=== PATIENT | female | born 2000 | race Caucasian/White ===

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

== ENCOUNTER 2022-09-27 15:07 | Emergency (ER) | payer OTHER ==
[2022-09-27 15:17] VITALS: TEMP 98.6
[2022-09-27 16:50] LABS: Appearance,Urine Clear (Clear); Bilirubin,Urine Negative (Negative); Blood,Urine Negative (Negative); Color,Urine Yellow; Glucose,Urine (UA) Negative (Negative); Ketones,Urine Negative (Negative); Leukocyte Esterase,Urine Negative (Negative); Nitrite,Urine Negative (Negative); Protein,Urine Negative (Negative); Specific Gravity,Urine 1.013 (1.001-1.035); Urobilinogen,Urine <2.0 mg/dL (<2.0)
--- NOTE | 2022-09-27 16:53 | ED ---
Abdominal Pain HPI - General Chief Complaint: Abdominal Pain Stated Complaint: Abd pain/25 weeks preg Time Seen by Provider: 09/27/22 15:43 Source: patient Mode of arrival: ambulatory Limitations: no limitations - History of Present Illness Complaint: abdominal pain Onset/Timin -: days(s) Location: LLQ, RLQ, suprapubic Radiation: none Severity: moderate Quality: cramping Consistency: intermittent Improves With: nothing Worsens With: nothing Associated Symptoms: nausea - Related Data LMP (females 10-50): Home Medications Medication Instructions Recorded Confirmed No Known Home Medications 09/27/22 09/27/22 Allergies Allergy/AdvReac Type Severity Reaction Status Date / Time Penicillins Allergy Rash/Hives Verified 09/27/22 17:41 Review of Systems ROS Statement: Those systems with pertinent positive or pertinent negative responses have been documented in the HPI. ROS Other: All systems not noted in ROS Statement are negative. Constitutional: Denies: fever, chills Respiratory: Denies: cough, dyspnea Cardiovascular: Denies: chest pain, palpitations, edema Gastrointestinal: Reports: abdominal pain. Denies: nausea, vomiting, diarrhea, constipation Genitourinary: Denies: urgency, dysuria, frequency, discharge Musculoskeletal: Denies: back pain Skin: Denies: rash Neurological: Denies: headache, weakness Past Medical History Past Medical History: Asthma History of Any Multi-Drug Resistant Organisms: None Reported Past Surgical History: No Surgical Hx Reported Past Psychological History: ADD/ADHD, Anxiety, Bipolar, Depression Smoking Status: Current every day smoker Past Alcohol Use History: Rare Past Drug Use History: None Reported General Exam Limitations: no limitations General appearance: alert, in no apparent distress Head exam: Present: atraumatic, normocephalic Eye exam: Present: normal appearance. Absent: scleral icterus, conjunctival injection ENT exam: Present: normal exam Neck exam: Present: normal inspection Respiratory exam: Present: normal lung sounds bilaterally. Absent: respiratory distress, wheezes, rales, rhonchi, stridor Cardiovascular Exam: Present: regular rate, normal rhythm, normal heart sounds. Absent: systolic murmur, diastolic murmur, rubs, gallop GI/Abdominal exam: Present: soft, other (Gravid uterus palpable above the umbilicus, palpable movement). Absent: distended, tenderness, guarding, rebound, mass Extremities exam: Present: normal inspection, normal capillary refill. Absent: pedal edema, calf tenderness Back exam: Present: normal inspection. Absent: CVA tenderness (R), CVA tend erness (L) Neurological exam: Present: alert Skin exam: Present: warm, dry, intact, normal color. Absent: rash Course Vital Signs 09/27/22 09/27/22 09/27/22 15:15 17:17 18:28 Temperature 98.6 F 98.6 F Pulse Rate 92 86 76 Respiratory 18 18 20 Rate Blood Pressure 117/79 120/78 120/65 O2 Sat by Pulse 98 98 96 Oximetry Medical Decision Making - Medical Decision Making Was pt. sent in by a medical professional or institution (, PA, PATIENT RELATIONS COORDINATOR, urgent care, hospital, or senior care...) When possible be specific @ -[No] Did you speak to anyone other than the patient for history (EMS, parent, family, police, friend...)? What history was obtained from this source @ -[No] Did you review nursing and triage notes (agree or disagree)? Why? @ -[I reviewed and agree with nursing and triage notes] Were old charts reviewed (outside hosp., previous admission, EMS record, old EKG, old radiological studies, urgent care reports/EKG's, senior care records)? Report findings @ -[No old charts were reviewed] Differential Diagnosis (chest pain, altered mental status, abdominal pain women, abdominal pain men, vaginal bleeding, weakness, fever, dyspnea, syncope, headache, dizziness, GI bleed, back pain, seizure, CVA, palpatations, mental health, musculoskeletal)? @ -[Differential Abdominal Pain Women: Appendicitis, Cholecystitis, diverticulosis, ischemic bowel, pancreatitis, hepatitis, UTI, gastroenteritis, AAA, incarcerated hernia, bowel obstruction, constipation, inflammatory bowel, hepatitis, peptic ulcer disease, splenic infarction, perforated viscus, vulvitis, ovarian torsion, PID, kidney stone, placenta abruption, this is not meant to be an all-inclusive list EKG interpreted by me (3pts min.). @ -[As above] X-rays interpreted by me (1pt min.). @ -[None done] CT interpreted by me (1pt min.). @ -[None done] U/S interpreted by me (1pt. min.). @ -[None done] What testing was considered but not performed or refused? (CT, X-rays, U/S, labs)? Why? @ -[None] What meds were considered but not given or refused? Why? @ -[None] Did you discuss the management of the patient with other professionals (professionals i.e. , PA, PATIENT RELATIONS COORDINATOR, lab, RT, psych nurse, social staff worker, tailoring teacher, teacher, commanding officer garage, porter sample case)? Give summary @ -[No] Was smoking cessation discussed for >3mins.? @ -[No] Was critical care preformed (if so, how long)? @ -[No] Were there social determinants of health that impacted care today? How? (Homelessness, low income, unemployed, alcoholism, drug addiction, transportation, low edu. Level, literacy, decrease access to med. care, prison, rehab)? @ -[No] Was there de-escalation of care discussed even if they declined (Discuss DNR or withdrawal of care, Hospice)? DNR status @ -[No] What co-morbidities impacted this encounter? (DM, HTN, Smoking, COPD, CAD, Cancer, CVA, ARF, Chemo, Hep., AIDS, mental health diagnosis, sleep apnea, morbid obesity)? @ -[None] Was patient admitted / discharged? Hospital course, mention meds given and route, prescriptions, significant lab abnormalities, going to OR and other pertinent info. @ -[Patient is discharged to follow-up with peripheral equipment operator, discussed appropriate follow-up as well as return parameters Undiagnosed new problem with uncertain prognosis? @ -[No] Drug Therapy requiring intensive monitoring for toxicity (Heparin, Nitro, Insulin, Cardizem)? @ -[No] Were any procedures done? @ -[No] Diagnosis/symptom? @ -[Acute abdominal pain and Acute, or Chronic, or Acute on Chronic? @ -[default] Uncomplicated (without systemic symptoms) or Complicated (systemic symptoms)? @ -Uncomplicated Side effects of treatment? @ -[No] Exacerbation, Progression, or Severe Exacerbation? @ -[No] Poses a threat to life or bodily function? How? (Chest pain, [place], [place], pneumonia, PE, COPD, DKA, ARF, appy, cholecystitis, CVA, Diverticulitis, Homicidal, Suicidal, threat to staff... and all critical care pts) @ -[No] - Lab Data Result diagrams: 09/27/22 17:13 09/27/22 17:13 Lab Results 09/27/22 09/27/22 09/27/22 Range/Units 16:10 17:13 17:13 WBC 10.7 (4.0-11.0) k/uL RBC 3.52 L (3.80-5.40) m/uL Hgb 11.8 (11.4-16.0) gm/dL Hct 33.9 L (34.0-46.0) % MCV 96.3 (80.0-100.0) fL MCH 33.5 (25.0-35.0) pg MCHC 34.8 (31.0-37.0) g/dL RDW 12.2 (11.5-15.5) % Plt Count 208 (150-450) k/uL MPV 9.3 Neutrophils % 75 % Lymphocytes % 17 % Monocytes % 6 % Eosinophils % 2 % Basophils % 0 % Neutrophils # 8.0 H (1.3-7.7) k/uL Lymphocytes # 1.8 (1.0-4.8) k/uL Monocytes # 0.6 (0-1.0) k/uL Eosinophils # 0.2 (0-0.7) k/uL Basophils # 0.0 (0-0.2) k/uL Sodium 133 L (137-145) mmol/L Potassium 4.7 (3.5-5.1) mmol/L Chloride 108 H (98-107) mmol/L Carbon Dioxide 19 L (22-30) mmol/L Anion Gap 6 mmol/L BUN 9 (7-17) mg/dL Creatinine 0.35 L (0.52-1.04) mg/dL Est GFR (CKD-EPI)AfAm >90 (>60 ml/min/1.73 sqM) Est GFR (CKD-EPI)NonAf >90 (>60 ml/min/1.73 sqM) Glucose 85 (74-99) mg/dL Calcium 8.6 (8.4-10.2) mg/dL Total Bilirubin 1.0 (0.2-1.3) mg/dL AST 38 H (14-36) U/L ALT 14 (4-34) U/L Alkaline Phosphatase 42 (38-126) U/L Total Protein 6.7 (6.3-8.2) g/dL Albumin 3.8 (3.5-5.0) g/dL Urine Color Yellow Urine Appearance Clear (Clear) Urine pH 7.0 (5.0-8.0) Ur Specific [place] 1.013 (1.001-1.035) Urine Protein Negative (Negative) Urine Glucose (UA) Negative (Negative) Urine Ketones Negative (Negative) Urine Blood Negative (Negative) Urine Nitrite Negative (Negative) Urine Bilirubin Negative (Negative) Urine Urobilinogen <2.0 (<2.0) mg/dL Ur Leukocyte Esterase Negative (Negative) Disposition Clinical Impression: Abdominal pain, Disposition: HOME SELF-CARE Instructions (If sedation given, give patient instructions): Abdominal Pain in (ED) Is patient prescribed a controlled substance at d/c from ED?: No Referrals: None,Stated [Primary Care Provider] - 1-2 days Pauline Cameron MD [STAFF PHYSICIAN] - 1-2 days
--- NOTE | 2022-09-27 17:01 | US ---
EXAMINATION TYPE: US OB >= 14 wk fetus DATE OF EXAM: 09/27/2022 COMPARISON: None CLINICAL INDICATION: Female, 22 years old with history of pelvic pain; No care. TECHNIQUE: Transabdominal (TA) GESTATIONAL AGE / DATING Physician Established: Not yet established Dates by LMP: (25 weeks/3 days) EDC: 01/07/2023 Dates by First Scan: No previous this is first scan Dates by Current Scan: (26 weeks/1 days) EDC: 01/02/2023 Beta HCG (if available): Not available at this time SURVEY IUP: Single PLACENTA: Anterior with placental lakes visualized PREVIA: No previa ISHA: 17.7 cm Normal CERVICAL LENGTH (transabdominal: norm > 3.0cm): 3.2 cm BIOMETRY PRESENTATION: Vertex BPD: 6.6 cm 26 weeks / 5 days HC: 25.1 cm 27 weeks / 2 days AC: 21.9 cm 26 weeks / 3 days FL: 4.7 cm 26 weeks / 5 days ESTIMATED WEIGHT IN GRAMS: 915.3 grams ESTIMATED WEIGHT IN LBS/OZ: 2 lbs. 0 oz. WEIGHT PERCENTAGE BASED ON ESTABLISHED DATES: 76.6% HC/AC: 1.2 Normal FL/AC: 21.6 Normal HEART RATE: 147 bpm RHYTHM: Normal Live IUP visualized. Placental lakes. IMPRESSION: Single viable intrauterine .
[2022-09-27 17:43] LABS: ALT 14 U/L (4-34); AST 38 U/L (14-36); African American GFR (CKD) >90 (>60 ml/min/1.73 sqM); Albumin 3.8 g/dL (3.5-5.0); Alkaline Phosphatase 42 U/L (38-126); Anion Gap 6 mmol/L; Blood Urea Nitrogen 9 mg/dL (7-17); Calcium 8.6 mg/dL (8.4-10.2); Carbon Dioxide 19 mmol/L (22-30); Chloride 108 mmol/L (98-107); Glucose 85 mg/dL (74-99); Non-African American GFR(CKD) >90 (>60 ml/min/1.73 sqM); Sodium 133 mmol/L (137-145); Total Protein 6.7 g/dL (6.3-8.2)
[2022-09-27 17:51] LABS: Potassium 4.7 mmol/L (3.5-5.1)
[2022-09-27 17:52] LABS: Basophils % (A) 0 %; Eosinophils # (A) 0.2 k/uL (0-0.7); Eosinophils % (A) 2 %; HCT 33.9 % (34.0-46.0); HGB 11.8 gm/dL (11.4-16.0); Lymphocytes # (A) 1.8 k/uL (1.0-4.8); Lymphocytes % (A) 17 %; MCH 33.5 pg (25.0-35.0); MCHC 34.8 g/dL (31.0-37.0); MCV 96.3 fL (80.0-100.0); Mean Platelet Volume 9.3; Monocytes # (A) 0.6 k/uL (0-1.0); Monocytes % (A) 6 %; Neutrophils % (A) 75 %; Platelet Count 208 k/uL (150-450); RBC 3.52 m/uL (3.80-5.40); RDW 12.2 % (11.5-15.5); WBC 10.7 k/uL (4.0-11.0)
[2022-09-27 18:32] VITALS: BP 120/65; PULSE 76; RESP 20
== END 2022-09-27 18:34 | disposition home or self-care (01) ==
LOC: EC 15:07
DX: O26.892 Other specified pregnancy related conditions, second trimester (principal); R10.32 Left lower quadrant pain; R10.31 Right lower quadrant pain; O99.512 Diseases of the respiratory system complicating pregnancy, second trimester; J45.909 Unspecified asthma, uncomplicated; O99.332 Smoking (tobacco) complicating pregnancy, second trimester; F17.200 Nicotine dependence, unspecified, uncomplicated; Z3A.25 25 weeks gestation of pregnancy; Z88.0 Allergy status to penicillin
CPT/HCPCS: 36415; 76805; 80053; 81003; 85025; 99284

== ENCOUNTER 2022-12-06 18:45 | Outpatient (CLI) | payer OTHER ==
[2022-12-06] MEDS ORDERED: TERBUTALINE 1 MG/ML VIAL SQ STA ×3 (20:40→21:27)
[2022-12-06] MEDS ORDERED: LACTATED RINGERS 1,000 ML IV SCH (20:45)
[2022-12-06 22:48] VITALS: BP 129/74; PULSE 96; RESP 16; TEMP 97.1
--- NOTE | 2023-01-12 10:47 | P.MSEPDOC ---
Presenting Problems - Arrival Data Date of Arrival on Unit: 12/06/22 Time of Arrival on Unit: 18:45 Mode of Transport: Ambulatory - Complaint OB-Reason for Admission/Chief Complaint: Possible Onset of Labor Comment: Patient arrived ambulatory from home with friend of family. Patient states. she feels like she is having contractionsthat started 12/06/22 at 1600 that are 7/10 pain. and feels like her water may have broke at 1445 12/06/22. Patient denies an sexual. intercourse in the past 24 hours, feels baby move, denies any vaginal bleeding. Medical History - Information : 1 Para: 0 Term: 0 : 0 Abortions: Spontaneous or Elective: 0 Number of Living Children: 0 - Gestational Age Gestational Age by HOPE (wks/days): 36 Weeks and 0 Days - History Complications: Smoker Comment: Patient stated that she had late care. Review of Systems - Review of Systems Constitutional: No problems Breast: No problems ENT: No problems Cardiovascular: No problems Respiratory: No problems Gastrointestinal: No problems Genitourinary: No problems Musculoskeletal: No problems Neurological: No problems Skin: No problems Vital Signs - Temperature Temperature: 97.1 F Temperature Source: Temporal Artery Scan - Pulse Pulse Oximetery Pulse Rate: 96 Pulse Assessment Method: Pulse Oximetry - Respirations Respiratory Rate: 16 Oxygen Delivery Method: Room Air - Blood Pressure Right Arm Blood Pressure: 129/74 Blood Pressure Mean: 92 Blood Pressure Source: Automatic Cuff Medical Screen Scoring - Cervical Exam Dilation (cm): 1 Effacement (%): 60 Station: -2 Membranes: Intact - Uterine Contractions Frequency From (mins): 2 Frequency To (mins): 3 Duration From (seconds): 40 Duration To (seconds): 50 Intensity: Mild Resting: Soft to palpation - Assessment - Baby A Baseline FHR: 120 Heart Rate - NICHD Category: Category I (Normal) NST: Reactive Physician Notification - Physician Notified Physician Notified Date: 12/06/22 Physician Notified Time: 20:16 Physician: Mayra Sheehan New Order Received: Yes - Notification Comment Comment: RN Spoke with Dr. Sheehan regarding patient she is aware of amnisure result of. negative, cervical check FHR cat 1, contractions. Dr. Sheehan ordered RN to start fluids. and offer terbutaline protocol to patient.Rn called Dr. Sheehan she is aware of patients pain has subsided 0/10,. contractions are absent now after observing patient after full terbutaline protocol. given by RN. Dr. Sheehan aware of cervical exam not changed and patients prior scheduled. appt tomorrow with Dr. Cameron at 1425 12/07[address]. [address] Sheehan is discharging patient. Maternal Triage Index - Prompt/Priority 3 Prompt Priority 3: Yes Criteria Met for Priority 3: Patient arrived ambulatory from home with friend of family. Patient states. she feels like she is having contractionsthat started 12/06/22 at 1600 that are 7/10 pain. and feels like her water may have broke at 1445 12/06/22. Patient denies an sexual. intercourse in the past 24 hours, feels baby move, denies any vaginal bleeding. Disposition - Disposition OB Disposition: Discharge to home Discharge Date: 12/06/22 Discharge Time: 21:45 I agree with the RN Medical Screening Exam: Yes Case reviewed; plan agreed upon as documented in EMR&OBIX.: Yes Diagnosis: RELATED CONDITIONS, UNSPECIFIED, THIRD TRIMESTER
== END 2022-12-06 21:45 | disposition home or self-care (01) ==
LOC: FBPOP 18:45
PROVIDERS: ATTEND Obstetrics & Gynecology Obstetrics
DX: O47.03 False labor before 37 completed weeks of gestation, third trimester (principal); Z3A.36 36 weeks gestation of pregnancy; Z91.040 Latex allergy status; Z88.0 Allergy status to penicillin
CPT/HCPCS: 59025; 96360; 96372; 84112; G0463; J3105; 36415; 96361; 99214

== ENCOUNTER 2023-01-04 05:44 | Inpatient (IN) | payer OTHER ==
[2023-01-04] MEDS ORDERED: TRANEXAMIC 1,000 MG/100ML-NACL 1,000 MG in EMPTY BAG 1 BAG IV PRN (06:02)
[2023-01-04] MEDS ORDERED: METHYLERGONOVINE 0.2 MG/ML 1 ML AMP IM PRN (06:02)
[2023-01-04] MEDS ORDERED: TERBUTALINE 1 MG/ML VIAL SQ PRN (06:02)
[2023-01-04] MEDS ORDERED: miSOPROStoL 200 MCG TAB PO PRN (06:02)
[2023-01-04] MEDS ORDERED: LIDOCAINE 0.5% (PF) 5 MG/ML (50 ML SDV) SQ PRN (06:02)
[2023-01-04] MEDS ORDERED: CARBOPROST TROMETHAMINE 250 MCG/ML 1 ML AMP IM PRN (06:02)
[2023-01-04] MEDS ORDERED: OXYTOCIN 10 UNIT/ML 1 ML VIAL IM PRN (06:02)
[2023-01-04] MEDS ORDERED: OXYTOCIN 30 UNITS/500 ML NS 30 UNIT in SALINE 1 500ML.BAG IV SCH (06:15)
[2023-01-04] MEDS: LACTATED RINGERS 1,000 ML IV SCH ×3 (06:30→16:58)
[2023-01-04 06:46] LABS: Basophils % (A) 0 %; Eosinophils # (A) 0.1 k/uL (0-0.7); Eosinophils % (A) 2 %; HCT 34.2 % (34.0-46.0); HGB 11.7 gm/dL (11.4-16.0); Lymphocytes # (A) 1.7 k/uL (1.0-4.8); Lymphocytes % (A) 23 %; MCH 32.6 pg (25.0-35.0); MCHC 34.3 g/dL (31.0-37.0); MCV 95.3 fL (80.0-100.0); Mean Platelet Volume 8.2; Monocytes # (A) 0.7 k/uL (0-1.0); Monocytes % (A) 9 %; Neutrophils # (A) 4.9 k/uL (1.3-7.7); Neutrophils % (A) 64 %; Platelet Count 255 k/uL (150-450); RBC 3.59 m/uL (3.80-5.40); RDW 12.2 % (11.5-15.5); WBC 7.6 k/uL (4.0-11.0)
[2023-01-04] MEDS ORDERED: CLINDAMYCIN 900 MG in DEXTROSE 5% IN WATER 50 ML IVPB STA ×2 (06:51)
--- NOTE | 2023-01-04 07:53 | P.HPOB ---
History of Present Illness H&P Date: 01/04/23 Chief Complaint: Induction of Labor Ms. Fischer is a 22 year old at 40 weeks and 2 days with EDC of 01/02/2023 (by LMP consistent with 28 week US) who presents to labor and delivery for induction of labor. The has been complicated by social issues including periods of homelessness and living in a women's prison as well as the patient being late to care. The patient was also vaping tobacco and a discussion was had about the risks to the fetus, the patient was advised to quit. work-up: blood type O positive, antibody negative, rubella immune, VDRL non-reactive, HBsAg negative, HIV negative, gonorrhea negative, chlamydia negative, 1 hour GTT within normal limits, GBS positive. Past medical history: asthma, migraines Surgical history: none Past Medical History Past Medical History: Asthma History of Any Multi-Drug Resistant Organisms: None Reported Past Surgical History: No Surgical Hx Reported Past Psychological History: ADD/ADHD, Anxiety, Bipolar, Depression Smoking Status: Current every day smoker Past Alcohol Use History: Rare Past Drug Use History: None Reported Medications and Allergies Home Medications Medication Instructions Recorded Confirmed Type Vit No.179/Iron/Folic 1 each PO DAILY 12/06/22 01/04/23 History [ Tablet] Allergies Allergy/AdvReac Type Severity Reaction Status Date / Time Latex, Natural Rubber Allergy Rash/Hives Verified 01/04/23 06:01 Penicillins Allergy Rash/Hives Verified 01/04/23 06:01 Exam Vital Signs Temp Pulse Resp BP 01/04/23 05:58 97.6 F 88 16 127/71 Intake and Output 01/03/23 01/04/23 01/04/23 22:59 06:59 14:59 Other: Weight 86.183 kg Physical exam is performed. This is a healthy appearing gravid woman in no apparent distress. Breathing is non-labored. Abdomen is gravid and non-tender. Cervical exam is 1 cm, 80% effacement, -3 station. Extremities are non-tender and non-edematous. heart tones are category 1 and tocometer is graphing irregular contractions at this time. Results Result Diagrams: 01/04/23 06:27 Abnormal Lab Results - Last 24 Hours (Table) 01/04/23 Range/Units 06:27 RBC 3.59 L (3.80-5.40) m/uL Assessment and Plan Assessment: 22 year old at 40 weeks and 2 days presenting for induction of labor Plan: 1. GBS positive, Cefazolin GBS ppx IV 2. IOL. Plan for pitocin per protocol, AROM after 2nd dose of antibiotics. 3. Continuous monitoring and close monitoring of patient. Time with Patient: Less than 30
[2023-01-04 08:10] LABS: Amphetamine Screen,Urine Not Detected (NotDetected); Barbiturate Screen,Urine Not Detected (NotDetected); Benzodiazepines Screen,Urine Not Detected (NotDetected); Cocaine Screen,Urine Not Detected (NotDetected); Methadone Screen, Urine Not Detected (NotDetected); Opiate Screen,Urine Not Detected (NotDetected); Oxycodone Screen, Urine Not Detected (NotDetected); Phencyclidine Screen,Urine Not Detected (NotDetected); Tricyclic Antidepressant,Urine Not Detected (NotDetected); Urn Cannabinoid Scrn Detected (NotDetected)
[2023-01-04] MEDS ORDERED: CLINDAMYCIN 900 MG in DEXTROSE 5% IN WATER 50 ML IVPB SCH ×2 (15:00)
[2023-01-04] MEDS ORDERED: ROPIVACAINE 5 MG/ML 30 ML VIAL ONE (16:21)
[2023-01-04] MEDS ORDERED: SODIUM CHLORIDE 0.9% 250 ML BAG ONE (16:21)
[2023-01-04] MEDS ORDERED: fentaNYL (PF) 50 MCG/ML 5 ML AMP ONE (16:21)
[2023-01-04] MEDS ORDERED: diphenhydrAMINE 50 MG CAP PO PRN (20:42)
[2023-01-04] MEDS ORDERED: diphenhydrAMINE 50 MG/ML 1 ML VIAL IVP PRN ×2 (20:42)
[2023-01-04] MEDS ORDERED: LANOLIN CREAM 5 GM TUBE TOPICAL PRN (20:42)
[2023-01-04] MEDS ORDERED: HYDROCORTISONE 2.5% RECTAL CREAM 30 GM TUBE RECTAL PRN (20:42)
[2023-01-04] MEDS ORDERED: SIMETHICONE 80 MG CHEWABLE PO PRN (20:42)
[2023-01-04] MEDS ORDERED: BENZOCAINE/MENTHOL SPRAY 1 GM/SPRAY AEROSOL TOPICAL PRN (20:42)
[2023-01-04] MEDS ORDERED: diphenhydrAMINE 25 MG CAP PO PRN (20:42)
[2023-01-04] MEDS ORDERED: ZOLPIDEM 5 MG TAB PO PRN (20:42)
--- NOTE | 2023-01-04 20:42 | P.PROBDLV ---
Vaginal Delivery Note - . Vaginal Delivery Note: DATE OF SERVICE: 01/04/2023 PROCEDURE: Normal Vaginal Delivery ATTENDING: Dr. Pauline Cameron MD ESTIMATED BLOOD LOSS: 100 mL FINDINGS: VMI, Apgars 8/9. Weight 8 pounds and 6 ounces (3805 grams) PROCEDURE: Ms. Naranjo is a 22 year old at 40 weeks presenting to labor and delivery for induction of labor. The has been complicated by social issues including periods of homelessness and living in a women's residential. For further details, please review the admitting H&P. The pitocin was started per protocol. AROM was undertaken at 1232 revealing clear fluid. Care was taken to wait 4 hours after the initiating of IV antibiotics as the patient is GBS positive. The patient was completely dilated at 1927. The patient pushed effectively with Category II heart tones noted. A viable male infant was delivered at 1945. The was placed on the maternal abdomen and bulb suctioned. Cord was clamped and cut after a 30-second delay. The infant was handed off to the pediatric team. Placenta was delivered whole with gentle cord traction at 1947. Oxytocin was started to facilitate uterine tone. Uterine fundus was found to be firm and below the umbilicus upon fundal massage. Thorough examination of the cervix, vagina, periurethral area, and perineum revealed a superficial right periurethral laceration that was repaired with 3-0 Vicryl in a running fashion. The patient is stable and allowed to begin the bonding process. Patient stable .
[2023-01-04] MEDS: IBUPROFEN 600 MG TAB PO PRN (20:59)
[2023-01-05] MEDS: ACETAMINOPHEN TAB 325 MG TAB PO PRN ×2 (01:30→20:46)
[2023-01-05] MEDS: IBUPROFEN 600 MG TAB PO PRN ×2 (03:04→16:22)
[2023-01-05 07:51] LABS: Basophils % (A) 0 %; Eosinophils # (A) 0.2 k/uL (0-0.7); Eosinophils % (A) 2 %; HCT 31.5 % (34.0-46.0); HGB 10.3 gm/dL (11.4-16.0); Lymphocytes # (A) 1.9 k/uL (1.0-4.8); Lymphocytes % (A) 22 %; MCH 31.9 pg (25.0-35.0); MCHC 32.8 g/dL (31.0-37.0); MCV 97.3 fL (80.0-100.0); Mean Platelet Volume 8.1; Monocytes # (A) 0.6 k/uL (0-1.0); Monocytes % (A) 6 %; Neutrophils # (A) 5.8 k/uL (1.3-7.7); Neutrophils % (A) 67 %; Platelet Count 216 k/uL (150-450); RBC 3.24 m/uL (3.80-5.40); RDW 12.2 % (11.5-15.5); WBC 8.7 k/uL (4.0-11.0)
[2023-01-05] MEDS ORDERED: SENNOSIDES-DOCUSATE SODIUM 1 EACH TAB PO SCH (08:00)
[2023-01-05] MEDS: LACTATED RINGERS 1,000 ML IV SCH (08:31)
--- NOTE | 2023-01-05 08:52 | P.DS ---
Providers Date of admission: 01/04/23 05:44 Expected date of discharge: 01/05/23 Attending physician: Pauline Cameron MD Primary care physician: Stated None Hospital Course: Ms. Naranjo is a 22 year old now PPD#1 s/p normal vaginal delivery. The patient is doing well this morning and had no acute events overnight. She has no complaints this morning. She reports minimal lochia, passing flatus, voiding without difficulty, ambulating, and eating/drinking without nausea or vomiting. Infant doing well at bedside, s/p circumcision. is going well. She denies chest pain, shortness of breathing, fevers, or chills overnight. She denies pain or swelling in the legs. restrictions are reviewed with the patient including pelvic rest for 6 weeks. The patient is encouraged to call the office if she experiences any heavy bleeding, foul-smelling discharge, breast complaints, or any if she has any other concerns. She will follow up in the office with in 6 weeks for exam. She will go home with Motrin and Tylenol. All questions are answered. Assessment: 22 year old PPD#1 s/p normal vaginal delivery Patient Condition at Discharge: Good Plan - Discharge Summary New Discharge Prescriptions: No Action Vit No.179/Iron/Folic [ Tablet] 1 each PO DAILY Discharge Medication List Vit No.179/Iron/Folic [ Tablet] 1 each PO DAILY 12/06/22 [History]
[2023-01-05 16:47] VITALS: BP 132/72; PULSE 77; RESP 17; TEMP 98.1
== END 2023-01-05 21:30 | disposition home or self-care (01) | DRG 753 ==
LOC: 4FBP 05:44
PROVIDERS: ADMIT Obstetrics & Gynecology; ATTEND Obstetrics & Gynecology
PROC: 10E0XZZ Delivery of Products of Conception, External Approach (ICD-10-PCS; principal; 2023-01-04)
PROC: 10907ZC Drainage of Amniotic Fluid, Therapeutic from Products of Conception, Via Natural or Artificial Opening (ICD-10-PCS; 2023-01-04)
PROC: 0UQMXZZ Repair Vulva, External Approach (ICD-10-PCS; 2023-01-04)
PROC: 3E033VJ Introduction of Other Hormone into Peripheral Vein, Percutaneous Approach (ICD-10-PCS; 2023-01-04)
PROC: 4A1HXCZ Monitoring of Products of Conception, Cardiac Rate, External Approach (ICD-10-PCS; 2023-01-04)
DX: F31.9 Bipolar disorder, unspecified (principal); F41.9 Anxiety disorder, unspecified; F90.9 Attention-deficit hyperactivity disorder, unspecified type; J45.909 Unspecified asthma, uncomplicated; O71.82 Other specified trauma to perineum and vulva; O99.824 Streptococcus B carrier state complicating childbirth; O48.0 Post-term pregnancy; O99.344 Other mental disorders complicating childbirth; O99.334 Smoking (tobacco) complicating childbirth; O99.52 Diseases of the respiratory system complicating childbirth; Z37.0 Single live birth; F17.210 Nicotine dependence, cigarettes, uncomplicated; Z3A.40 40 weeks gestation of pregnancy
CPT/HCPCS: 80306; 85025; 86803; 86850; 86900; 86901